=== PATIENT | female | born 1995 | race Two or more races ===

== ENCOUNTER 2016-11-13 20:25 | Emergency (ER) | payer SELFPAY ==
[~2016-11-13] VITALS: Ht 160 cm; Wt 77.1 kg
[2016-11-13 21:00] VITALS: BP 0/0
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
== END 2016-11-13 21:13 | disposition left against medical advice (07) ==
LOC: EDBD 20:25 → EMR 21:13
DX: M25.512 Pain in left shoulder (principal); Z53.21 Procedure and treatment not carried out due to patient leaving prior to being seen by health care provider